=== PATIENT | male | born 2000 | race Caucasian/White ===

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

== ENCOUNTER 2022-08-24 19:12 | Emergency (ER) | payer BC, OTHER ==
[2022-08-24 19:17] VITALS: RESP 18
[2022-08-24 19:19] VITALS: TEMP 98
--- NOTE | 2022-08-24 19:36 | ED ---
General Adult HPI - General Chief complaint: Arrhythmia/Palpitations Stated complaint: palpitations Time Seen by Provider: 08/24/22 19:17 Source: patient, EMS, RN notes reviewed Mode of arrival: EMS Limitations: no limitations - History of Present Illness Initial comments: Patient is a pleasant 22-year-old male presenting to the emergency department chest discomfort and palpitations. Onset of symptoms was about an hour ago. Symptoms are improving however not completely resolved yet. Patient has had similar symptoms previously, unclear why. Patient is scheduled to see a GI doctor for evaluation for that. Patient has been started on a medication is going to start another one because the original one did not help. Patient states there is some mild discomfort as well. Patient states he was smoking marijuana prior to onset of symptoms. Patient omits to feeling somewhat anxious. Patient states this is improving also and does not feel he needs medication for. No leg pain or leg swelling. - Related Data Home Medications Medication Instructions Recorded Confirmed No Known Home Medications 08/24/22 08/24/22 Allergies Allergy/AdvReac Type Severity Reaction Status Date / Time No Known Allergies Allergy Verified 08/24/22 20:17 Review of Systems ROS Statement: Those systems with pertinent positive or pertinent negative responses have been documented in the HPI. ROS Other: All systems not noted in ROS Statement are negative. Constitutional: Denies: fever Eyes: Denies: eye pain ENT: Denies: ear pain Respiratory: Denies: cough, dyspnea Cardiovascular: Reports: as per HPI, palpitations Endocrine: Denies: fatigue Gastrointestinal: Denies: abdominal pain Genitourinary: Denies: urgency Musculoskeletal: Denies: back pain Skin: Denies: rash Neurological: Denies: weakness Psychiatric: Reports: as per HPI, anxiety Past Medical History Past Medical History: No Reported History History of Any Multi-Drug Resistant Organisms: None Reported Past Surgical History: No Surgical Hx Reported Past Psychological History: Anxiety Smoking Status: Vaper Past Alcohol Use History: Rare Past Drug Use History: Marijuana General Exam Limitations: no limitations General appearance: alert, in no apparent distress Head exam: Present: normocephalic Eye exam: Present: normal appearance Neck exam: Present: normal inspection Respiratory exam: Present: normal lung sounds bilaterally Cardiovascular Exam: Present: regular rate, normal rhythm, normal heart sounds Expanded Peripheral pulses: 2+: Radial (R), Radial (L), Posterior Tibialis (R), Posterior Tibialis (L), Dorsalis Pedis (R), Dorsalis Pedis (L) GI/Abdominal exam: Present: soft. Absent: tenderness Extremities exam: Present: normal inspection. Absent: pedal edema, calf tenderness Neurological exam: Present: alert Psychiatric exam: Present: normal affect, normal mood Skin exam: Present: normal color Course Vital Signs 08/24/22 19:14 Temperature 98 F Pulse Rate 98 Respiratory 18 Rate Blood Pressure 133/81 O2 Sat by Pulse 99 Oximetry EKG Findings - EKG Results: EKG: interpreted by ERMD, sinus rhythm, normal axis, normal QRS, normal ST/T EKG shows: tachycardia Medical Decision Making - Medical Decision Making Was pt. sent in by a medical professional or institution (, DONNA, PARACHUTE ACCESSORIES ATTACHER, urgent care, hospital, or prison...) When possible be specific @ -No Did you speak to anyone other than the patient for history (EMS, parent, family, police, friend...)? What history was obtained from this source @ -No Did you review nursing and triage notes (agree or disagree)? Why? @ -I reviewed and agree with nursing and triage notes Were old charts reviewed (outside hosp., previous admission, EMS record, old EKG, old radiological studies, urgent care reports/EKG's, prison records)? Report findings @ -No old charts were reviewed Differential Diagnosis (chest pain, altered mental status, abdominal pain women, abdominal pain men, vaginal bleeding, weakness, fever, dyspnea, syncope, headache, dizziness, GI bleed, back pain, seizure, CVA, palpatations, mental health)? @ -not applicable EKG interpreted by me (3pts min.). @ -As above X-rays interpreted by me (1pt min.). @ -[Chest x-ray shows no acute process CT interpreted by me (1pt min.). @ -None done U/S interpreted by me (1pt. min.). @ -None done What testing was considered but not performed or refused? (CT, X-rays, U/S, labs)? Why? @ -None What meds were considered but not given or refused? Why? @ -None Did you discuss the management of the patient with other professionals (professionals i.e. DONNA Glynn, PARACHUTE ACCESSORIES ATTACHER, lab, RT, psych nurse, social media coordinator, hat presser, teacher, protective services officer, case manager specialist)? Give summary @ -No Was smoking cessation discussed for >3mins.? @ -No Was critical care preformed (if so, how long)? @ -No Were there social determinants of health that impacted care today? How? (Homelessness, low income, unemployed, alcoholism, drug addiction, transportation, low edu. Level, literacy, decrease access to med. care, detention, rehab)? @ -No Was there de-escalation of care discussed even if they declined (Discuss DNR or withdrawal of care, Hospice)? DNR status @ -No What co-morbidities impacted this encounter? (DM, HTN, Smoking, COPD, CAD, Cancer, CVA, ARF, Chemo, Hep., AIDS, mental health diagnosis, sleep apnea, morbid obesity)? @ -None Was patient admitted / discharged? Hospital course, mention meds given and route, prescriptions, significant lab abnormalities, going to OR and other pertinent info. @ -Patient reevaluated and feels even better. Patient is comfortable with discharge home. Patient and family updated on results and need for follow-up. Patient does request work note and this has been provided. Undiagnosed new problem with uncertain prognosis? @ -No Drug Therapy requiring intensive monitoring for toxicity (Heparin, Nitro, Insulin, Cardizem)? @ -No Were any procedures done? @ -No Diagnosis/symptom? @ -[Palpitation Acute, or Chronic, or Acute on Chronic? @ -Acute Uncomplicated (without systemic symptoms) or Complicated (systemic symptoms)? @ -default Side effects of treatment? @ -No Exacerbation, Progression, or Severe Exacerbation? @ -No Poses a threat to life or bodily function? How? (Chest pain, [place], [place], pneumonia, PE, COPD, DKA, ARF, appy, cholecystitis, CVA, Diverticulitis, Homicidal, Suicidal, threat to staff... and all critical care pts) @ -No Disposition Clinical Impression: Palpitations, Chest pain Disposition: HOME SELF-CARE Condition: Stable Instructions (If sedation given, give patient instructions): Heart Palpitations (ED), Chest Pain (ED) Additional Instructions: Please follow-up with primary care physician in the next day or 2 for recheck. Return for difficulty breathing, increased pain, worsening or changing symptoms or other concerns. Is patient prescribed a controlled substance at d/c from ED?: No Referrals: Nonstaff,Physician [REFERRING] - 1-2 days Julian Gonzalez MD [STAFF PHYSICIAN] - 1-2 days Time of Disposition: 20:28
--- NOTE | 2022-08-24 20:22 | XR ---
EXAMINATION TYPE: XR chest 2V DATE OF EXAM: 08/24/2022 COMPARISON: 02/15/2007 HISTORY: Palpitation TECHNIQUE: FINDINGS: Heart and mediastinum are normal. Lungs are clear. Diaphragm is normal. There are chest mane ds. Bony thorax appears normal. IMPRESSION: Normal chest.
[2022-08-24 20:27] VITALS: BP 121/70; PULSE 71
== END 2022-08-24 20:43 | disposition home or self-care (01) ==
LOC: EC 19:12
DX: R00.2 Palpitations (principal); R07.9 Chest pain, unspecified; F41.9 Anxiety disorder, unspecified; F17.290 Nicotine dependence, other tobacco product, uncomplicated; F12.90 Cannabis use, unspecified, uncomplicated
CPT/HCPCS: 71046; 93005; 99285

== ENCOUNTER 2022-11-05 19:59 | Inpatient (IN) | payer BC, MEDICAID, OTHER ==
--- NOTE | 2022-11-05 20:45 | ED ---
Psych HPI - General Chief Complaint: Psychiatric Symptoms Stated Complaint: Mental Health Time Seen by Provider: 11/05/22 20:25 Source: patient, RN notes reviewed, old records reviewed Mode of arrival: ambulatory - History of Present Illness Initial Comments: This is a well-appearing 22-year-old male presents to the emergency room with complaints of depression and suicidal thoughts. States it for the past month he has been under a lot of stress with his job, bills and a recent breakup. States that today he was hanging out with his friends and did take a knife to his left arm. Abrasion is noted. Denies any previous suicide attempts or mental health hospitalizations. No medical history. Admits to smoking marijuana daily for the past week and occasionally prior. Denies any alcohol or other drug use. MD Complaint: suicidal ideation, feels depressed -: month(s) (1) Associated Psychiatric Symptoms: depression, suicidal ideation History of same: No Quality: constant, getting worse Associated Symptoms: denies other symptoms Treatments Prior to Arrival: none If Self Harm: other (states did have a knife to left arm tonight, abrasion noted) - Related Data Home Medications Medication Instructions Recorded Confirmed No Known Home Medications 08/24/22 11/05/22 Allergies Allergy/AdvReac Type Severity Reaction Status Date / Time No Known Allergies Allergy Verified 11/05/22 21:40 Review of Systems ROS Statement: Those systems with pertinent positive or pertinent negative responses have been documented in the HPI. ROS Other: All systems not noted in ROS Statement are negative. Past Medical History Past Medical History: No Reported History History of Any Multi-Drug Resistant Organisms: None Reported, MRSA Date of last positivie culture/infection: 2011 MDRO Source:: finger Past Surgical History: No Surgical Hx Reported Past Psychological History: Anxiety Smoking Status: Former smoker Past Alcohol Use History: Rare Past Drug Use History: Marijuana General Exam Limitations: no limitations General appearance: alert, in no apparent distress Head exam: Present: atraumatic Eye exam: Present: normal appearance. Absent: scleral icterus, conjunctival injection, periorbital swelling Neck exam: Present: full ROM. Absent: meningismus Respiratory exam: Absent: respiratory distress, accessory muscle use Cardiovascular Exam: Present: tachycardia GI/Abdominal exam: Present: soft. Absent: distended, guarding, rebound, rigid Extremities exam: Present: normal capillary refill. Absent: pedal edema, joint swelling, calf tenderness Back exam: Absent: tenderness, CVA tenderness (R), CVA tenderness (L) Neurological exam: Present: alert, oriented X3 Psychiatric exam: Present: normal affect, normal mood, depressed, suicidal ideation Skin exam: Present: warm, dry, normal color, abrasion (left upper forarm ). Absent: cyanosis, diaphoretic, petechiae, pallor Course Vital Signs 11/05/22 20:18 Temperature 98.0 F Pulse Rate 104 H Respiratory 18 Rate Blood Pressure 145/90 O2 Sat by Pulse 100 Oximetry Medical Decision Making - Medical Decision Making Was pt. sent in by a medical professional or institution (, PA, HEALTH CARE SPECIALIST, urgent care, hospital, or fci...) When possible be specific @ -[No] Did you speak to anyone other than the patient for history (EMS, parent, family, police, friend...)? What history was obtained from this source @ -[No] Did you review nursing and triage notes (agree or disagree)? Why? @ -[I reviewed and agree with nursing and triage notes] Were old charts reviewed (outside hosp., previous admission, EMS record, old EKG, old radiological studies, urgent care reports/EKG's, [facility]ci records)? Report findings @ -[No old charts were reviewed] Differential Diagnosis (chest pain, altered mental status, abdominal pain women, abdominal pain men, vaginal bleeding, weakness, fever, dyspnea, syncope, headache, dizziness, GI bleed, back pain, seizure, CVA, palpatations, mental health, musculoskeletal)? @ -Differential Mental Health Depression, anxiety, bipolar, psychosis, schizophrenia, borderline personality, situational depression, adjustment disorder, behavioral disorder, brain tumor, malingering, substance abuse, encephalopathy, medication reaction, dementia, hypothyroidism, degenerative neurologic disorder, lupus.... This is not meant to be all-inclusive list EKG interpreted by me (3pts min.). @ -[As above] X-rays interpreted by me (1pt min.). @ -[None done] CT interpreted by me (1pt min.). @ -[None done] U/S interpreted by me (1pt. min.). @ -[None done] What testing was considered but not performed or refused? (CT, X-rays, U/S, labs)? Why? @ -[None] What meds were considered but not given or refused? Why? @ -[None] Did you discuss the management of the patient with other professionals (professionals i.e. , PA, HEALTH CARE SPECIALIST, lab, RT, psych nurse, hospice social worker, corn popper, teacher, chemistry technical officer, bottle caser)? Give summary @ -[No] Was smoking cessation discussed for >3mins.? @ -[No] Was critical care preformed (if so, how long)? @ -[No] Were there social determinants of health that impacted care today? How? (Homelessness, low income, unemployed, alcoholism, drug addiction, transportation, low edu. Level, literacy, decrease access to med. care, long-term, rehab)? @ -[No] Was there de-escalation of care discussed even if they declined (Discuss DNR or withdrawal of care, Hospice)? DNR status @ -[No] What co-morbidities impacted this encounter? (DM, HTN, Smoking, COPD, CAD, Cancer, CVA, ARF, Chemo, Hep., AIDS, mental health diagnosis, sleep apnea, morbid obesity)? @ -[None] Was patient admitted / discharged? Hospital course, mention meds given and route, prescriptions, significant lab abnormalities, going to OR and other pertinent info. @ -Admitted This is a well-appearing 22-year-old male presents to the emergency room with complaints of depression and suicidal thoughts. States it for the past month he has been under a lot of stress with his job, bills and a recent breakup. States that today he was hanging out with his friends and did take a knife to his left arm. Abrasion is noted. Denies any previous suicide attempts or mental health hospitalizations. No medical history. Admits to smoking marijuana daily for the past week and occasionally prior. Denies any alcohol or other drug use. EPS tested speak with patient and he is voluntarily admitted My attending is Dr. Fuentes Undiagnosed new problem with uncertain prognosis? @ -[No] Drug Therapy requiring intensive monitoring for toxicity (Heparin, Nitro, Insulin, Cardizem)? @ -[No] Were any procedures done? @ -[No] Diagnosis/symptom? @ -Suicidal ideation Acute, or Chronic, or Acute on Chronic? @ -Acute Uncomplicated (without systemic symptoms) or Complicated (systemic symptoms)? @ -Complicated Side effects of treatment? @ -[No] Exacerbation, Progression, or Severe Exacerbation? @ -[No] Poses a threat to life or bodily function? How? (Chest pain, [place], [place], pneumonia, PE, COPD, DKA, ARF, appy, cholecystitis, CVA, Diverticulitis, Homicidal, Suicidal, threat to staff... and all critical care pts) @ -yes suicidal ideation - Lab Data Lab Results 11/05/22 11/05/22 Range/Units 20:29 21:34 Urine Color Yellow Urine Appearance Clear (Clear) Urine pH 7.5 (5.0-8.0) Ur Specific [place] 1.015 (1.001-1.035) Urine Protein Negative (Negative) Urine Glucose (UA) Negative (Negative) Urine Ketones 2+ H (Negative) Urine Blood Negative (Negative) Urine Nitrite Negative (Negative) Urine Bilirubin Negative (Negative) Urine Urobilinogen 2.0 (<2.0) mg/dL Ur Leukocyte Esterase Negative (Negative) Coronavirus (PCR) Not Detected (Not Detectd) Disposition Clinical Impression: Suicidal ideation Disposition: ADMITTED IP TO THIS [facility] Condition: Good Decision Date: 11/05/22
[2022-11-05] MEDS ORDERED: MAGNESIUM HYDROXIDE 2,400 MG/10 ML CUP PO PRN (22:37)
[2022-11-05] MEDS ORDERED: ACETAMINOPHEN TAB 325 MG TAB PO PRN (22:37)
[2022-11-05] MEDS ORDERED: MAG HYDROX/AL HYDROX/SIMETH 30 ML CUP PO PRN (22:37)
[2022-11-05] MEDS ORDERED: OLANZapine 5 MG TAB PO PRN (22:39)
[2022-11-05] MEDS ORDERED: hydrOXYzine HCL 50 MG/ML 1 ML VIAL IM PRN (22:39)
[2022-11-05] MEDS ORDERED: MELATONIN 5 MG TABLET PO PRN (22:39)
[2022-11-05] MEDS ORDERED: OLANZapine 10 MG VIAL IM PRN (22:39)
[2022-11-05] MEDS ORDERED: hydrOXYzine pamoate 25 MG CAP PO PRN (22:39)
[2022-11-05 22:55] LABS: Appearance,Urine Clear (Clear); Bilirubin,Urine Negative (Negative); Blood,Urine Negative (Negative); Color,Urine Yellow; Glucose,Urine (UA) Negative (Negative); Ketones,Urine 2+ (Negative); Leukocyte Esterase,Urine Negative (Negative); Nitrite,Urine Negative (Negative); PH, Urine 7.5 (5.0-8.0); Protein,Urine Negative (Negative); Specific Gravity,Urine 1.015 (1.001-1.035)
[2022-11-06 06:03] LABS: Urine Alcohol Negative (Negative); Urine Barbiturate Negative (Negative); Urine Cocaine Negative (Negative); Urine Methadone Negative (Negative); Urine Opiates Negative (Negative); Urine Phencyclidine Negative (Negative)
[2022-11-06 08:35] LABS: Basophils % (A) 0 %; Eosinophils # (A) 0.1 k/uL (0-0.7); Eosinophils % (A) 1 %; HCT 46.8 % (39.0-53.0); Lymphocytes # (A) 3.3 k/uL (1.0-4.8); Lymphocytes % (A) 42 %; MCHC 34.2 g/dL (31.0-37.0); MCV 93.8 fL (80.0-100.0); Mean Platelet Volume 7.4; Monocytes # (A) 0.4 k/uL (0-1.0); Monocytes % (A) 6 %; Neutrophils # (A) 3.8 k/uL (1.3-7.7); Neutrophils % (A) 49 %; Platelet Count 350 k/uL (150-450); RBC 4.99 m/uL (4.30-5.90); WBC 7.8 k/uL (3.8-10.6)
[2022-11-06 08:55] LABS: ALT 22 U/L (4-49); AST 27 U/L (17-59); African American GFR (CKD) >90 (>60 ml/min/1.73 sqM); Albumin 5.4 g/dL (3.5-5.0); Alkaline Phosphatase 68 U/L (38-126); Anion Gap 14 mmol/L; Blood Urea Nitrogen 10 mg/dL (9-20); Calcium 10.4 mg/dL (8.4-10.2); Carbon Dioxide 28 mmol/L (22-30); Chloride 99 mmol/L (98-107); Glucose 70 mg/dL (74-99); Non-African American GFR(CKD) >90 (>60 ml/min/1.73 sqM); Potassium 4.1 mmol/L (3.5-5.1); Sodium 141 mmol/L (137-145); Total Bilirubin 1.8 mg/dL (0.2-1.3); Total Protein 8.8 g/dL (6.3-8.2)
[2022-11-06] MEDS ORDERED: NICOTINE 14MG/24HR PATCH TRANSDERM SCH (09:00)
--- NOTE | 2022-11-06 13:18 | P.HP ---
Psychiatric H&P - . H&P Date: 11/06/22 History & Physical: Allergies Allergy/AdvReac Type Severity Reaction Status Date / Time No Known Allergies Allergy Verified 11/05/22 21:40 Vital Signs Temp 98.7 F 11/06/22 01:20 Pulse 97 11/06/22 01:20 Resp 16 11/06/22 01:20 BP 131/79 11/06/22 01:20 Pulse Ox 98 11/06/22 01:20 FiO2 Intake & Output 11/05/22 11/06/22 11/06/22 18:59 06:59 18:59 Weight 60.645 kg Laboratory Last Values WBC 7.8 k/uL (3.8-10.6) 11/06/22 07:46 RBC 4.99 m/uL (4.30-5.90) 11/06/22 07:46 Hgb 16.0 gm/dL (13.0-17.5) 11/06/22 07:46 Hct 46.8 % (39.0-53.0) 11/06/22 07:46 MCV 93.8 fL (80.0-100.0) 11/06/22 07:46 MCH 32.0 pg (25.0-35.0) 11/06/22 07:46 MCHC 34.2 g/dL (31.0-37.0) 11/06/22 07:46 RDW 12.0 % (11.5-15.5) 11/06/22 07:46 Plt Count 350 k/uL (150-450) 11/06/22 07:46 MPV 7.4 11/06/22 07:46 Neutrophils % 49 % 11/06/22 07:46 Lymphocytes % 42 % 11/06/22 07:46 Monocytes % 6 % 11/06/22 07:46 Eosinophils % 1 % 11/06/22 07:46 Basophils % 0 % 11/06/22 07:46 Neutrophils # 3.8 k/uL (1.3-7.7) 11/06/22 07:46 Lymphocytes # 3.3 k/uL (1.0-4.8) 11/06/22 07:46 Monocytes # 0.4 k/uL (0-1.0) 11/06/22 07:46 Eosinophils # 0.1 k/uL (0-0.7) 11/06/22 07:46 Basophils # 0.0 k/uL (0-0.2) 11/06/22 07:46 Sodium 141 mmol/L (137-145) 11/06/22 07:46 Potassium 4.1 mmol/L (3.5-5.1) 11/06/22 07:46 Chloride 99 mmol/L (98-107) 11/06/22 07:46 Carbon Dioxide 28 mmol/L (22-30) 11/06/22 07:46 Anion Gap 14 mmol/L 11/06/22 07:46 BUN 10 mg/dL (9-20) 11/06/22 07:46 Creatinine 0.87 mg/dL (0.66-1.25) 11/06/22 07:46 Est GFR (CKD-EPI)AfAm >90 (>60 ml/min/1.73 sqM) 11/06/22 07:46 Est GFR (CKD-EPI)NonAf >90 (>60 ml/min/1.73 sqM) 11/06/22 07:46 Glucose 70 mg/dL (74-99) L 11/06/22 07:[address] Glu mg/dL 88 mg/dL 11/06/22 07:46 Hemoglobin A1c 4.7 % (<=6.0) 11/06/22 07:46 Calcium 10.4 mg/dL (8.4-10.2) H 11/06/22 07:46 Total Bilirubin 1.8 mg/dL (0.2-1.3) H 11/06/22 07:46 AST 27 U/L (17-59) 11/06/22 07:46 ALT 22 U/L (4-49) 11/06/22 07:46 Alkaline Phosphatase 68 U/L (38-126) 11/06/22 07:46 Total Protein 8.8 g/dL (6.3-8.2) H 11/06/22 07:46 Albumin 5.4 g/dL (3.5-5.0) H 11/06/22 07:46 TSH 1.620 mIU/L (0.465-4.680) 11/06/22 07:46 Urine Color Yellow 11/05/22 20:29 Urine Appearance Clear (Clear) 11/05/22 20:29 Urine pH 7.5 (5.0-8.0) 11/05/22 20:29 Ur Specific [place] 1.015 (1.001-1.035) 11/05/22 20:29 Urine Protein Negative (Negative) 11/05/22 20:29 Urine Glucose (UA) Negative (Negative) 11/05/22 20:29 Urine Ketones 2+ (Negative) H 11/05/22 20:29 Urine Blood Negative (Negative) 11/05/22 20:29 Urine Nitrite Negative (Negative) 11/05/22 20:29 Urine Bilirubin Negative (Negative) 11/05/22 20:29 Urine Urobilinogen 2.0 mg/dL (<2.0) 11/05/22 20:29 Ur Leukocyte Esterase Negative (Negative) 11/05/22 20:29 Urine Opiates Screen Negative (Negative) 11/05/22 20:29 Urine Methadone Screen Negative (Negative) 11/05/22 20:29 Ur Propoxyphene Screen Negative (Negative) 11/05/22 20:29 Urine Barbiturates Negative (Negative) 11/05/22 20:29 Ur Phencyclidine Scrn Negative (Negative) 11/05/22 20:29 Ur Amphetamine Screen Negative (Negative) 11/05/22 20:29 U Benzodiazepines Scrn Negative (Negative) 11/05/22 20:29 Urine Cocaine Screen Negative (Negative) 11/05/22 20:29 U Cannabinoids Screen Positive (Negative) A 11/05/22 20:29 Urine Alcohol Negative (Negative) 11/05/22 20:29 Coronavirus (PCR) Not Detected (Not Detectd) 11/05/22 21:34 11/06/22 13:08 IDENTIFYING DATA: Patient is a 22-year-old male, currently lives alone in an apartment, has no kids, works at the [employer]. HPI: Patient presented to the hospital yesterday and was evaluated in the ER and was complaining of depression and suicidal thoughts in the midst of several recent stressors in his life. Patient was admitted voluntarily to the mental health unit. Patient has never been admitted psychiatrically in the past. He was seen today and agreeable to scientific writer in the office. He appeared to be fairly friendly and pleasant and directable during conversation. He states that he has been going through "a lot right now" and states that he had a recent "bad breakup" with his girlfriend of 3 years. He claims that they "just didn't work out because of poor communication". He claims that they broke up on October 02 and he has been trying to cope on his own at home. He states that these have been difficult times for him. He claims that he is been struggling with some mild depression and also anxiety. He claims that he also has some financial stressors due to being laid off from work. Claims that yesterday he picked up a knife to potentially harm himself with it however states that "I couldn't go through with it" and states that he went to the hospital instead. He claims that he has never had a suicidal thought in the past. He claims that he sleeps about 6-8 hours a night, appetite is been on and off. Patient denies any current suicidal or homicidal ideations intent or plan. At this time patient denies any auditory or visual hallucinations. Patient denies any flight of ideas racing thoughts and increased in goal directed behavior. Patient admits to using marijuana frequently and increasing use during the day, denies smoking any cigarettes states that he quit smoking several weeks ago. Denies any other recreational drug use. PAST PSYCHIATRIC HISTORY: Patient states that he has a history of ADHD as a child. He claims that he was previously on Adderall as a child and a few months ago tried Wellbutrin prescribed by his family care doctor. He states that he did not tolerate the Wellbutrin well. Patient denies any previous psychiatric hospitalizations. Patient denies any psychiatric outpatient follow-up. Patient denies any history of suicide attempts in the past. PMH: As per ER note ALLERGIES: as per EMR CHEMICAL DEPENDENCY HISTORY: as per HPI FAMILY PSYCHIATRIC/SUBSTANCE USE HISTORY: Claims that his mother has severe depression. SOCIAL HISTORY: Patient was born and raised in [facility]. He states that currently he lives in [place]. He stated that he completed up to 11th grade in school. Denies any legal history. He states that he lives alone in an apartment. He has no kids, he is single, he currently is working at the [employer] however is laid off. MENTAL STATUS EXAM: General Appearance: Patient appears to be thin, stated age is alert, directable, and attempts to cooperate. Patient appears to have fair hygiene and grooming. Behavior: Patient is seated without any agitated behavior. somewhat cooperative. Speech: Patient's speech is fluent and nonpressured. Mood/Affect: Patient reports their mood is depressed sometimes, affect is congruent Suicidality/Homicidality: Patient denies having any homicidal ideation intent or plan. Denies any suicidal ideations intent or plan Perceptions: Patient denies any visual hallucinations and denies any auditory hallucinations Though content/process: There is no evidence of any delusional thought content and thought process is linear and goal-directed. minimizing his need for medications Memory and concentration: AOX3, grossly intact for the purposes of this session. Can spell "WORLD" backwards Judgment and insight: limited STRENGTHS/WEAKNESSES: strength is that patient is resilient. 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 Patient has signed adult voluntary form and is placed in patient's chart. -Medications : scientific writer discussed his recommendation to start on an anitdepressant and listed off several options however patient is very skeptical of medications at this time and does not want to start any. He claims that he will think about it and wants to attend groups -Ativan and Haldol PRN for agitation/aggression -Patient was counselled on substance abuse and desired to cut back on use -Patient was informed of the risks, benefits and side effects of the medication however patient adamatly is declining any medications. -Internal Medicine consult to perform medical evaluation and physical. -NRT - not needed as patient does not smoke -SW on board for discharge planning. Encourage patient to participate in groups to work on coping skills. there is not enough at this time to proceed through the involuntary route due to patients milder sx and refusal to take treatment/medications. Patient will think about medications at this time and participate in groups and will consider d/c tomorrow if patient will be better suited for outpatient mental health care. 11/06/22 13:09
--- NOTE | 2022-11-06 21:01 | P.CONS ---
History of Present Illness - Reason for Consult Consult date: 11/06/22 Medical management Requesting physician: Xavier Baer - Chief Complaint Depressed - History of Present Illness This is a 22-year-old patient was at Dr. Burnett. Has had a prior history of ADHD as a child. 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 Looking at a grocery store. Patient's girlfriend of 3 years duration has broken up. And patient rather sad about the same. Appetite is okay. Not eating well. Rather anxious. Patient did take a knife to hurt himself but couldn't continue it. Decided to come to the ER. Patient stopped smoking about 2 months ago. Does marijuana occasionally. Does live by himself. 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 Lives alone. Still smoking 2 months ago. Does marijuana occasionally. Physical examination: VITAL SIGNS: 98.7, 97, 16, 131/79, 98% room air GENERAL: BMI 19.7, somewhat restless and fidgety. EYES: Pupils equal. Conjunctiva normal. HEENT: External appearance of nose and ears normal, oral cavity grossly normal. NECK: JVD not raised; masses not palpable. HEART: First and second heart sounds are normal; no edema. LUNGS: Respiratory rate normal; clear to auscultation. ABDOMEN: Soft, nontender, liver spleen not palpable, no masses palpable. PSYCH: Alert and oriented x3; mood and affect anxiousl. MUSCULOSKELETAL:No Clubbing/cyanosis;muscles-grossly intact NEUROLOGICAL: Cranial nerves grossly intact; no facial asymmetry, power and sensation grossly intact. LYMPHATICS: No lymph nodes palpable in the axilla and neck INVESTIGATIONS, reviewed in the clinical context: White count 7.8 hemoglobin 16 platelets 350 potassium 4.1 creatinine 0.87. Glucose 70 total bilirubin 1.8 TSH 1.6 urine ketones 2+ Urine drug screen positive for cannabinoids COVID-19 PCR: Not detected Assessment and plan: -Recreational marijuana use. Patient advised against the same -Hyperbilirubinemia, likely familial. Asymptomatic -Ketonuria from starvation decreased oral intake Increase oral intake -Insomnia from anxiety depression. Medications for depression her from sleep better. -Depressive disorder unspecified likely adjustment disorder with depression and anxiety. Follow with psychiatry Thank you Dr. Baer Past Medical History Past Medical History: No Reported History History of Any Multi-Drug Resistant Organisms: None Reported, MRSA Year Discovered:: 2011 MDRO Source:: finger Past Surgical History: No Surgical Hx Reported Past Psychological History: Anxiety Smoking Status: Former smoker Past Alcohol Use History: Rare Past Drug Use History: Marijuana Medications and Allergies Home Medications Medication Instructions Recorded Confirmed Type No Known Home Medications 08/24/22 11/05/22 History Allergies Allergy/AdvReac Type Severity Reaction Status Date / Time No Known Allergies Allergy Verified 11/05/22 21:40 Physical Exam Vitals: Vital Signs Temp Pulse Resp BP Pulse Ox 11/06/22 01:20 98.7 F 97 16 131/79 98 Intake and Output 11/06/22 11/06/22 11/06/22 06:59 14:59 22:59 Other: Weight 60.645 kg Results CBC & Chem 7: 11/06/22 07:46 11/06/22 07:46 Labs: Abnormal Lab Results - Last 24 Hours (Table) 11/05/22 11/05/22 11/06/22 Range/Units 20:29 20:29 07:46 Glucose 70 L (74-99) mg/dL Calcium 10.4 H (8.4-10.2) mg/dL Total Bilirubin 1.8 H (0.2-1.3) mg/dL Total Protein 8.8 H (6.3-8.2) g/dL Albumin 5.4 H (3.5-5.0) g/dL Urine Ketones 2+ H (Negative) U Cannabinoids Screen Positive A (Negative)
[2022-11-07 05:48] VITALS: BP 114/80; PULSE 106; RESP 18; TEMP 98.3
--- NOTE | 2022-11-07 09:42 | P.DS ---
Providers Date of admission: 11/05/22 22:32 Expected date of discharge: 11/07/22 Attending physician: Xavier Baer MD Consults: 11/05/22 22:37 Consult Physician Routine Consulting Provider: Joss Arambula Consult Reason/Comments: H&P Do you want consulting provider notified?: Yes, Notify in am Primary care physician: Jabari Burnett - Discharge Diagnosis(es) (1) Depressive disorder Current Visit: Yes Status: Acute Priority: High (2) Cannabis use disorder Current Visit: Yes Status: Acute Priority: Medium Hospital Course: Admission HPI: Admission note was completed by proposal manager writer "Patient is a 22-year-old male, currently lives alone in an apartment, has no kids, works at the [employer]. Patient presented to the hospital yesterday and was evaluated in the ER and was complaining of depression and suicidal thoughts in the midst of several recent stressors in his life. Patient was admitted voluntarily to the mental health unit. Patient has never been admitted psychiatrically in the past. He was seen today and agreeable to home health speech therapist in the office. He appeared to be fairly friendly and pleasant and directable during conversation. He states that he has been going through "a lot right now" and states that he had a recent "bad breakup" with his girlfriend of 3 years. He claims that they "just didn't work out because of poor communication". He claims that they broke up on October 02 and he has been trying to cope on his own at home. He states that these have been difficult times for him. He claims that he is been struggling with some mild depression and also anxiety. He claims that he also has some financial stressors due to being laid off from work. Claims that yesterday he picked up a knife to potentially harm himself with it however states that "I couldn't go through with it" and states that he went to the hospital instead. He claims that he has never had a suicidal thought in the past. He claims that he sleeps about 6-8 hours a night, appetite is been on and off. Patient denies any current suicidal or homicidal ideations intent or plan. At this time patient denies any auditory or visual hallucinations. Patient denies any flight of ideas racing thoughts and increased in goal directed behavior. Patient admits to using marijuana frequently and increasing use during the day, denies smoking any cigarettes states that he quit smoking several weeks ago. Denies any other recreational drug use." Hospital course: Upon admission to the unit patient was directable and agreeable to commence treatment and signed adult voluntary form, Patient got along well with other patients on the unit and followed unit protocol. Hot Mill Operator spoke with patient about the recommendation for starting antidepressant and possibly sleeping medi cations however patient was adamant on refusing medications and would rather go to groups and "talk to other people" and requested to do outpatient therapy instead of taking medications. Patient spoke of his stressors and engaged in therapy both group and individual. Patient was also seen by medical team for history and physical exam. Throughout the course of the hospitalization patient gradually improved with regards to mood, anxiety, sleep and returned back to their baseline level of functioning. On the day of discharge patient denied any suicidal or homicidal ideations intent or plan denied any auditory or visual hallucinations. Patient endorsed wanting to live for his health, future and family. The patient denied any access to guns or weapons. Patient denied any paranoia and did not endorse any delusions. Patient does have a significant history of substance abuse and was counseled on abstaining from all substances including alcohol and marijuana. Patient elected to do outpatient substance use treatment program and also wanted to cut back on marijuana on his own. Patient was also counseled on the medications and need for regular compliance and was encouraged to follow-up with their outpatient appointment for mental health and also for primary care. Prior to discharge a family meeting will be arranged by social worker psychiatric to answer any questions and ensure safety upon discharge. Mental status exam: General Appearance: Patient appears to be thin, unshaven, stated age is alert, pleasant, and cooperative. Patient is in no acute distress and has improved hygiene and grooming Behavior: Patient is calmly seated without any agitated behavior. Speech: Patient's speech is fluent and nonpressured. Mood/Affect: Patient reports their mood is "better", affect is congruent and euthymic. Suicidality/Homicidality: Patient denies having any suicidal or homicidal ideation intent or plan. Perceptions: Patient denies any auditory or visual hallucinations. Though content/process: There is no evidence of any delusional thought content and thought process is linear and goal-directed. more future oriented Memory and concentration: AOX3, grossly intact for the purposes of this session. Can spell "WORLD" backwards correctly. Judgment and insight: improved with guarded prognosis Impression: Depressive disorder unspecified, likely adjustment disorder with depression and anxiety Cannabis use disorder Plan: -Continue with discharge today as patient has improved and stabilized psychiatrically and is not currently an imminent threat to himself and/or others. -Continue medications: patient adamantly declined medications at this time and would rather do outpatient therapy and possibly groups. -Patient was counseled on the need for medication compliance and appropriate follow-up at mental health and also primary care for medical issues. Patient verbalized understanding and agreed. -Social work to arrange for and conduct family meeting to ensure safety upon discharge and answer any questions/concerns. Social work also to arrange for patients follow up appointments for psychiatric care along with follow up with primary care provider. -Patient counseled on abstaining from recreational drugs and marijuana and alcohol. Was informed/educated on the adverse effects on their physical and mental health. Patient verbally agreed and understood. -Patient was instructed to return to the hospital or seek immediate medical care if their psychiatric or medical symptoms do worsen or reoccur. Allergies Allergy/AdvReac Type Severity Reaction Status Date / Time No Known Allergies Allergy Verified 11/05/22 21:40 Laboratory Results WBC 7.8 k/uL (3.8-10.6) 11/06/22 07:46 RBC 4.99 m/uL (4.30-5.90) 11/06/22 07:46 Hgb 16.0 gm/dL (13.0-17.5) 11/06/22 07:46 Hct 46.8 % (39.0-53.0) 11/06/22 07:46 MCV 93.8 fL (80.0-100.0) 11/06/22 07:46 MCH 32.0 pg (25.0-35.0) 11/06/22 07:46 MCHC 34.2 g/dL (31.0-37.0) 11/06/22 07:46 RDW 12.0 % (11.5-15.5) 11/06/22 07:46 Plt Count 350 k/uL (150-450) 11/06/22 07:46 MPV 7.4 11/06/22 07:46 Neutrophils % 49 % 11/06/22 07:46 Lymphocytes % 42 % 11/06/22 07:46 Monocytes % 6 % 11/06/22 07:46 Eosinophils % 1 % 11/06/22 07:46 Basophils % 0 % 11/06/22 07:46 Neutrophils # 3.8 k/uL (1.3-7.7) 11/06/22 07:46 Lymphocytes # 3.3 k/uL (1.0-4.8) 11/06/22 07:46 Monocytes # 0.4 k/uL (0-1.0) 11/06/22 07:46 Eosinophils # 0.1 k/uL (0-0.7) 11/06/22 07:46 Basophils # 0.0 k/uL (0-0.2) 11/06/22 07:46 Sodium 141 mmol/L (137-145) 11/06/22 07:46 Potassium 4.1 mmol/L (3.5-5.1) 11/06/22 07:46 Chloride 99 mmol/L (98-107) 11/06/22 07:46 Carbon Dioxide 28 mmol/L (22-30) 11/06/22 07:46 Anion Gap 14 mmol/L 11/06/22 07:46 BUN 10 mg/dL (9-20) 11/06/22 07:46 Creatinine 0.87 mg/dL (0.66-1.25) 11/06/22 07:46 Est GFR (CKD-EPI)AfAm >90 (>60 ml/min/1.73 sqM) 11/06/22 07:46 Est GFR (CKD-EPI)NonAf >90 (>60 ml/min/1.73 sqM) 11/06/22 07:46 Glucose 70 mg/dL (74-99) L 11/06/22 07:[address] Glu mg/dL 88 mg/dL 11/06/22 07:46 Hemoglobin A1c 4.7 % (<=6.0) 11/06/22 07:46 Calcium 10.4 mg/dL (8.4-10.2) H 11/06/22 07:46 Total Bilirubin 1.8 mg/dL (0.2-1.3) H 11/06/22 07:46 AST 27 U/L (17-59) 11/06/22 07:46 ALT 22 U/L (4-49) 11/06/22 07:46 Alkaline Phosphatase 68 U/L (38-126) 11/06/22 07:46 Total Protein 8.8 g/dL (6.3-8.2) H 11/06/22 07:46 Albumin 5.4 g/dL (3.5-5.0) H 11/06/22 07:46 TSH 1.620 mIU/L (0.465-4.680) 11/06/22 07:46 Urine Color Yellow 11/05/22 20:29 Urine Appearance Clear (Clear) 11/05/22 20:29 Urine pH 7.5 (5.0-8.0) 11/05/22 20:29 Ur Specific [place] 1.015 (1.001-1.035) 11/05/22 20:29 Urine Protein Negative (Negative) 11/05/22 20:29 Urine Glucose (UA) Negative (Negative) 11/05/22 20:29 Urine Ketones 2+ (Negative) H 11/05/22 20:29 Urine Blood Negative (Negative) 11/05/22 20:29 Urine Nitrite Negative (Negative) 11/05/22 20:29 Urine Bilirubin Negative (Negative) 11/05/22 20:29 Urine Urobilinogen 2.0 mg/dL (<2.0) 11/05/22 20:29 Ur Leukocyte Esterase Negative (Negative) 11/05/22 20:29 Urine Opiates Screen Negative (Negative) 11/05/22 20:29 Urine Methadone Screen Negative (Negative) 11/05/22 20:29 Ur Propoxyphene Screen Negative (Negative) 11/05/22 20:29 Urine Barbiturates Negative (Negative) 11/05/22 20:29 Ur Phencyclidine Scrn Negative (Negative) 11/05/22 20:29 Ur Amphetamine Screen Negative (Negative) 11/05/22 20:29 U Benzodiazepines Scrn Negative (Negative) 11/05/22 20:29 Urine Cocaine Screen Negative (Negative) 11/05/22 20:29 U Cannabinoids Screen Positive (Negative) A 11/05/22 20:29 Urine Alcohol Negative (Negative) 11/05/22 20:29 Coronavirus (PCR) Not Detected (Not Detectd) 11/05/22 21:34 Vital Signs Temp 98.3 F 11/07/22 05:47 Pulse 106 H 11/07/22 05:47 Resp 18 11/07/22 05:47 BP 114/80 11/07/22 05:47 Pulse Ox 96 11/07/22 05:47 FiO2 Patient Condition at Discharge: Stable Plan - Discharge Summary Discharge Rx Participant: Yes New Discharge Prescriptions: New Melatonin 10 mg PO HS PRN tab PRN Reason: sleep Discharge Medication List Melatonin 10 mg PO HS PRN tab 11/07/22 [Rx] Follow up Appointment(s)/Referral(s): Jabari Burentt MD [Primary Care Provider] - 1-2 days Activity/Diet/Wound Care/Special Instructions: Avoid the use of street drugs and alcohol. Take all medications as prescribed. When you are in need of refills on your medications, please contact your medical provider and/or outpatient psychiatrist to have this done. Please go to scheduled outpatient appointments for aftercare treatment. If symptoms return or become worse, call the crisis line at and/or go to the nearest emergency room for evaluation. Discharge Disposition: HOME SELF-CARE
== END 2022-11-07 13:33 | disposition home or self-care (01) | DRG 755 ==
LOC: EC 19:59 → 3MHU 22:32
PROVIDERS: ADMIT Psychiatry & Neurology Psychiatry; ATTEND Psychiatry & Neurology Psychiatry
DX: F43.23 Adjustment disorder with mixed anxiety and depressed mood (principal); R45.851 Suicidal ideations; F90.9 Attention-deficit hyperactivity disorder, unspecified type; F51.05 Insomnia due to other mental disorder; R82.4 Acetonuria; T73.0XXA Starvation, initial encounter; E80.6 Other disorders of bilirubin metabolism; Z71.51 Drug abuse counseling and surveillance of drug abuser; Z59.00 Homelessness unspecified; Z20.822 Contact with and (suspected) exposure to COVID-19; Z87.891 Personal history of nicotine dependence; Z86.14 Personal history of Methicillin resistant Staphylococcus aureus infection
CPT/HCPCS: 80053; 80306; 81003; 82075; 83036; 84443; 85025; 87635; 99285

== ENCOUNTER → 2022-12-08 | Outpatient (CLI) | payer OTHER ==
--- NOTE | 2022-12-10 08:52 | CT ---
EXAMINATION TYPE: CT abdomen w con DATE OF EXAM: 12/08/2022 COMPARISON: None INDICATION: LUQ and side pain DLP: 386.80 mGycm, Automated exposure control for dose reduction was used. CONTRAST: 100 mL of Isovue 300. Study performed with Oral Contrast TECHNIQUE: Axial images were obtained from above the diaphragm to the pubic rami in the axial plane a t 5 mm thick sections. Reconstructed images are reviewed on the computer in the coronal plane. FINDINGS: Limited CT sections are obtained the lung bases. The lung bases are clear. CT ABDOMEN: Liver: Normal Spleen: Normal Pancreas: Normal Adrenal glands: The adrenal glands are normal. Gallbladder: Normal Kidneys: No masses are evident. No hydronephrosis is present. No cysts are present. Delayed images were obtained through the kidneys, which remain unremarkable. Aorta: Normal Inferior vena cava: Normal. Loops of bowel with oral contrast. Unremarkable. There are loops of bowel without contrast. Fecal debris is within the colon. IMPRESSIONS: 1. Mild fecal retention
== END | disposition home or self-care (01) ==
LOC: RADCTMAIN 16:06
PROVIDERS: ATTEND Internal Medicine Gastroenterology
DX: R10.12 Left upper quadrant pain (principal); K56.41 Fecal impaction
CPT/HCPCS: 74160; Q9967

== ENCOUNTER 2023-10-08 18:44 | Emergency (ER) | payer MEDICAID, OTHER ==
--- NOTE | 2023-10-08 19:12 | XR ---
EXAMINATION TYPE: XR chest 2V DATE OF EXAM: 10/08/2023 7:06 PM CLINICAL INDICATION:Male, 23 years old with history of dysrhythmia; [facility] COMPARISON: Chest radiographs from 08/24/2022. TECHNIQUE: XR chest 2V Frontal and lateral views of the chest. FINDINGS: Lungs/Pleura: There is no evidence of pleural effusion, focal consolidation, or pneumothorax. Pulmonary vascularity: Unremarkable. Heart/mediastinum: Cardiomediastinal silhouette is unremarkable. Musculoskeletal: No acute osseous pathology. IMPRESSION: No acute cardiopulmonary disease/process.
[2023-10-08 19:34] LABS: Basophils # (A) 0.1 k/uL (0-0.2); Basophils % (A) 1 %; Eosinophils # (A) 0.1 k/uL (0-0.7); Eosinophils % (A) 1 %; HCT 47.7 % (39.0-53.0); HGB 16.3 gm/dL (13.0-17.5); Lymphocytes # (A) 1.4 k/uL (1.0-4.8); Lymphocytes % (A) 16 %; MCH 32.1 pg (25.0-35.0); MCHC 34.2 g/dL (31.0-37.0); MCV 93.9 fL (80.0-100.0); Mean Platelet Volume 6.9; Monocytes # (A) 0.4 k/uL (0-1.0); Monocytes % (A) 5 %; Neutrophils # (A) 6.4 k/uL (1.3-7.7); Neutrophils % (A) 75 %; Platelet Count 295 k/uL (150-450); RBC 5.08 m/uL (4.30-5.90); RDW 11.9 % (11.5-15.5); WBC 8.5 k/uL (3.8-10.6)
[2023-10-08 19:41] LABS: Partial Thromboplastin Time 24.6 sec (22.0-30.0); Prothrombin Time 10.5 sec (10.0-12.5)
[2023-10-08 19:43] LABS: ALT 103 U/L (4-49); AST 210 U/L (17-59); African American GFR (CKD) >90 (>60 ml/min/1.73 sqM); Albumin 5.5 g/dL (3.5-5.0); Alkaline Phosphatase 81 U/L (38-126); Anion Gap 13 mmol/L; Blood Urea Nitrogen 16 mg/dL (9-20); Calcium 10.2 mg/dL (8.4-10.2); Carbon Dioxide 23 mmol/L (22-30); Chloride 105 mmol/L (98-107); Glucose 84 mg/dL (74-99); Magnesium 2.1 mg/dL (1.6-2.3); Non-African American GFR(CKD) >90 (>60 ml/min/1.73 sqM); Potassium 4.1 mmol/L (3.5-5.1); Sodium 141 mmol/L (137-145); Total Bilirubin 1.1 mg/dL (0.2-1.3); Total Protein 8.6 g/dL (6.3-8.2)
[2023-10-08] MEDS: diphenhydrAMINE 25 MG CAP PO STA (21:05)
--- NOTE | 2023-10-08 21:57 | ED ---
General Adult HPI - General Chief complaint: Arrhythmia/Palpitations Stated complaint: Hypertenison Time Seen by Provider: 10/08/23 20:50 Source: patient, RN notes reviewed, old records reviewed Mode of arrival: ambulatory Limitations: no limitations - History of Present Illness Initial comments: Patient is a 23-year-old male who presents emergency department complaining of heart palpitations and anxiety. Has a history of hypertension, anxiety. Has been worse and ongoing for the last few weeks. Has not been taking his normal Cardizem medication. He does not like taking benzodiazepines for panic attacks but states that is what it feels like at this time. Denies any nausea or vomiting or lightheadedness. States he noticed he had high blood pressure as well at urgent care who sent him here for further evaluation. Patient states he currently is feeling improved. Denies coughing, fevers, chills. Denies any chest pain. Heart palpitations are improved as well. Presents for further evaluation. Workup started in triage. - Related Data Previous Rx's Medication Instructions Recorded Melatonin 10 mg PO HS PRN tab 11/07/22 Diltiazem Cd [Cardizem CD] 180 mg PO DAILY 14 Days #14 cap 10/08/23 Allergies Allergy/AdvReac Type Severity Reaction Status Date / Time No Known Allergies Allergy Verified 10/08/23 18:49 Review of Systems ROS Statement: Those systems with pertinent positive or pertinent negative responses have been documented in the HPI. Review of Systems: CONST: Denies fever EYES: Denies blurry vision ENT: Denies nasal congestion C/V: Endorses palpitations RESP: Denies shortness of breath GI: Denies abdominal pain : Denies dysuria SKIN: Denies rash. MSK: Denies joint pain. NEURO: Denies headache ROS Other: All systems not noted in ROS Statement are negative. Past Medical History Past Medical History: No Reported History Additional Past Medical History / Comment(s): Tachycardia. History of Any Multi-Drug Resistant Organisms: None Reported, MRSA Date of last positivie culture/infection: 2011 MDRO Source:: finger Past Surgical History: No Surgical Hx Reported Past Psychological History: Anxiety Smoking Status: Former smoker Past Alcohol Use History: Rare Past Drug Use History: None Reported, Marijuana General Exam - General Exam Comments Initial Comments: General: Appears anxious HEAD: Normal with no signs of head trauma. EYES: PERRLA, EOMI, conjunctiva normal, no discharge. ENT: Hearing grossly intact, normal oropharynx. RESPIRATORY: Clear breath sounds bilaterally. No wheezes, rales, or rhonchi. C/V: Regular rate and rhythm. S1 and S2 auscultated, no edema, peripheral pulses 2+ and intact throughout ABD: Abd is soft, nontender, nondistended EXT: Normal range of motion, no obvious deformity SKIN: No rashes or lesions observed on exposed skin. NEURO: Alert and oriented x 4. Limitations: no limitations Course Vital Signs 10/08/23 10/08/23 10/08/23 18:46 21:00 21:15 Temperature 97.7 F Pulse Rate 102 H 110 H 108 H Respiratory 16 18 19 Rate Blood Pressure 143/94 151/92 140/93 O2 Sat by Pulse 99 98 97 Oximetry 10/08/23 21:30 Temperature Pulse Rate 98 Respiratory 18 Rate Blood Pressure 105/79 O2 Sat by Pulse 98 Oximetry Medical Decision Making - Medical Decision Making Was pt. sent in by a medical professional or institution (, PA, [employer], urgent care, hospital, or [facility]...) When possible be specific @ -Sent by urgent care for further evaluation. Did you speak to anyone other than the patient for history (EMS, parent, family, police, friend...)? What history was obtained from this source @ -No Did you review nursing and triage notes (agree or disagree)? Why? @ -I reviewed and agree with nursing and triage notes Were old charts reviewed (outside hosp., previous admission, EMS record, old EKG, old radiological studies, urgent care reports/EKG's, [facility] records)? Report findings @ -Old charts including EKGs were reviewed from prior visits. Differential Diagnosis (chest pain, altered mental status, abdominal pain women, abdominal pain men, vaginal bleeding, weakness, fever, dyspnea, syncope, headache, dizziness, GI bleed, back pain, seizure, CVA, palpatations, mental health, musculoskeletal)? @ -Differential Palpitations Ventricular arrhythmias, atrial arrhythmias, myocardial infarction, anemia, thyrotoxicosis, electrolyte imbalance, hypokalemia, pulmonary embolism, pulmonary disease, drugs, alcohol, anxiety, stress.... This is not meant to be an all-inclusive list. EKG interpreted by me (3pts min.). @ -As above X-rays interpreted by me (1pt min.). @ -Chest x-ray reveals no obvious acute cardiopulmonary process. CT interpreted by me (1pt min.). @ -None done U/S interpreted by me (1pt. min.). @ -None done What testing was considered but not performed or refused? (CT, X-rays, U/S, labs)? Why? @ -None What meds were considered but not given or refused? Why? @ -None Did you discuss the management of the patient with other professionals (professionals i.e. , PA, [employer], lab, RT, psych nurse, social science analyst, draw string knotter, t eacher, chief analytics officer, case management rn)? Give summary @ -No Was smoking cessation discussed for >3mins.? @ -No Was critical care preformed (if so, how long)? @ -No Were there social determinants of health that impacted care today? How? (Homelessness, low income, unemployed, alcoholism, drug addiction, transportation, low edu. Level, literacy, decrease access to med. care, half-way, rehab)? @ -No Was there de-escalation of care discussed even if they declined (Discuss DNR or withdrawal of care, Hospice)? DNR status @ -No What co-morbidities impacted this encounter? (DM, HTN, Smoking, COPD, CAD, Cancer, CVA, ARF, Chemo, Hep., AIDS, mental health diagnosis, sleep apnea, morbid obesity)? @ -None Was patient admitted / discharged? Hospital course, mention meds given and route, prescriptions, significant lab abnormalities, going to OR and other pertinent info. @ -Workup started in triage. I evaluated the patient after he was placed in room. Currently is feeling improved. Workup has already been completed and shows a chest x-ray that is unremarkable, mildly elevated LFTs which are nonsp ecific. Troponin is undetectable. EKG shows no signs of acute ischemia, with J-point elevation. We will obtain repeat EKG. This shows no dynamic changes. Patient given Benadryl for his anxiety, as I strongly believe this is playing a role today. He declines any benzos. He was in agreement this plan. Vital signs within acceptable limits. On reevaluation, patient is feeling improved and would like to go. Heart score is low. I believe this is reasonable. I discussed results with the patient. I also recommended he go back on his blood pressure medication which she was in agreement with. He is out of his prescription and therefore that will be refilled for the next 14 days. He does have follow-up with his PCP next week. Patient was in agreement this plan. I instructed the patient to follow up with their PCP in the next 1-3 days. I explained that the patient should return to the emergency department if they experience any worsening symptoms. Strict return precautions were discussed with the patient. The patient expressed understanding of these instructions. I answered all questions that the patient had. The patient was discharged home in good condition with their prescriptions and follow up information. Undiagnosed new problem with uncertain prognosis? @ -No Drug Therapy requiring intensive monitoring for toxicity (Heparin, Nitro, Insulin, Cardizem)? @ -No Were any procedures done? @ -No Diagnosis/symptom? @ -Heart palpitations, anxiety, medication refill Acute, or Chronic, or Acute on Chronic? @ -Acute Uncomplicated (without systemic symptoms) or Complicated (systemic symptoms)? @ -Uncomplicated Side effects of treatment? @ -No Exacerbation, Progression, or Severe Exacerbation? @ -No Poses a threat to life or bodily function? How? (Chest pain, [place], [place], pneumonia, PE, COPD, DKA, ARF, appy, cholecystitis, CVA, Diverticulitis, Homicidal, Suicidal, threat to staff... and all critical care pts) @ -No - Lab Data Result diagrams: 10/08/23 19:27 10/08/23 19:27 Lab Results 10/08/23 10/08/23 10/08/23 Range/Units 19:27 19:27 19:27 WBC 8.5 (3.8-10.6) k/uL RBC 5.08 (4.30-5.90) m/uL Hgb 16.3 (13.0-17.5) gm/dL Hct 47.7 (39.0-53.0) % MCV 93.9 (80.0-100.0) fL MCH 32.1 (25.0-35.0) pg MCHC 34.2 (31.0-37.0) g/dL RDW 11.9 (11.5-15.5) % Plt Count 295 (150-450) k/uL MPV 6.9 Neutrophils % 75 % Lymphocytes % 16 % Monocytes % 5 % Eosinophils % 1 % Basophils % 1 % Neutrophils # 6.4 (1.3-7.7) k/uL Lymphocytes # 1.4 (1.0-4.8) k/uL Monocytes # 0.4 (0-1.0) k/uL Eosinophils # 0.1 (0-0.7) k/uL Basophils # 0.1 (0-0.2) k/uL PT 10.5 (10.0-12.5) sec INR 1.0 (<1.2) APTT 24.6 (22.0-30.0) sec Sodium 141 (137-145) mmol/L Potassium 4.1 (3.5-5.1) mmol/L Chloride 105 (98-107) mmol/L Carbon Dioxide 23 (22-30) mmol/L Anion Gap 13 mmol/L BUN 16 (9-20) mg/dL Creatinine 0.73 (0.66-1.25) mg/dL Est GFR (CKD-EPI)AfAm >90 (>60 ml/min/1.73 sqM) Est GFR (CKD-EPI)NonAf >90 (>60 ml/min/1.73 sqM) Glucose 84 (74-99) mg/dL Calcium 10.2 (8.4-10.2) mg/dL Magnesium 2.1 (1.6-2.3) mg/dL Total Bilirubin 1.1 (0.2-1.3) mg/dL AST 210 H (17-59) U/L ALT 103 H (4-49) U/L Alkaline Phosphatase 81 (38-126) U/L Troponin I (0.000-0.034) ng/mL Total Protein 8.6 H (6.3-8.2) g/dL Albumin 5.5 H (3.5-5.0) g/dL 10/08/23 Range/Units 19:27 WBC (3.8-10.6) k/uL RBC (4.30-5.90) m/uL Hgb (13.0-17.5) gm/dL Hct (39.0-53.0) % MCV (80.0-100.0) fL MCH (25.0-35.0) pg MCHC (31.0-37.0) g/dL RDW (11.5-15.5) % Plt Count (150-450) k/uL MPV Neutrophils % % Lymphocytes % % Monocytes % % Eosinophils % % Basophils % % Neutrophils # (1.3-7.7) k/uL Lymphocytes # (1.0-4.8) k/uL Monocytes # (0-1.0) k/uL Eosinophils # (0-0.7) k/uL Basophils # (0-0.2) k/uL PT (10.0-12.5) sec INR (<1.2) APTT (22.0-30.0) sec Sodium (137-145) mmol/L Potassium (3.5-5.1) mmol/L Chloride (98-107) mmol/L Carbon Dioxide (22-30) mmol/L Anion Gap mmol/L BUN (9-20) mg/dL Creatinine (0.66-1.25) mg/dL Est GFR (CKD-EPI)AfAm (>60 ml/min/1.73 sqM) Est GFR (CKD-EPI)NonAf (>60 ml/min/1.73 sqM) Glucose (74-99) mg/dL Calcium (8.4-10.2) mg/dL Magnesium (1.6-2.3) mg/dL Total Bilirubin (0.2-1.3) mg/dL AST (17-59) U/L ALT (4-49) U/L Alkaline Phosphatase (38-126) U/L Troponin I <0.012 (0.000-0.034) ng/mL Total Protein (6.3-8.2) g/dL Albumin (3.5-5.0) g/dL - EKG Data -: EKG Interpreted by Me EKG Comments: 12-lead Electrocardiogram Interpretation Note EKG was reviewed and interpreted by myself. 12-lead ECG performed at 1919 is interpreted by me as revealing normal sinus rhythm at a rate of 93 beats per minute. [place] is normal. [place] interval is 172 ms, QRS duration is 92 ms.. Patient appears to have J-point elevation. There were no ST or T wave abnormalities to suggest myocardial ischemia or injury. R wave progression across the precordium was satisfactory. By my interpretation this EKG is non- diagnostic for acute ischemia. 12-lead Electrocardiogram Interpretation Note EKG was reviewed and interpreted by myself. 12-lead ECG performed at 2056 is interpreted by me as revealing sinus tachycardia at a rate of 104 beats per minute. [place] is normal. [place] interval is 177 ms, QRS durations 100 ms, QTc is 396 ms.. There were no ST or T wave abnormalities to suggest myocardial ischemia or injury. Point elevation redemonstrated. R wave progression across the precordium was satisfactory. By my interpretation this EKG is non- diagnostic for acute ischemia. Disposition Clinical Impression: Anxiety, Heart palpitations, Medication refill Disposition: HOME SELF-CARE Condition: Good Instructions (If sedation given, give patient instructions): Heart Palpitations (ED) Prescriptions: Diltiazem Cd [Cardizem CD] 180 mg PO DAILY 14 Days #14 cap Is patient prescribed a controlled substance at d/c from ED?: No Referrals: Jabari Burnett MD [Primary Care Provider] - 1-2 days Time of Disposition: 21:57
[2023-10-08 22:07] VITALS: BP 105/79; PULSE 98; RESP 18
[2023-10-08 22:48] VITALS: TEMP 97.9
== END 2023-10-08 22:10 | disposition home or self-care (01) ==
LOC: EC 18:44
DX: F41.9 Anxiety disorder, unspecified (principal); R00.2 Palpitations; R00.0 Tachycardia, unspecified; Z76.0 Encounter for issue of repeat prescription; Z87.891 Personal history of nicotine dependence
CPT/HCPCS: 36415; 71046; 80053; 83735; 84484; 85025; 85610; 85730; 93005; 99285

== ENCOUNTER 2024-05-09 14:42 | Emergency (ER) | payer OTHER ==
--- NOTE | 2024-05-09 15:17 | ED ---
ENT HPI - General Chief complaint: Dental/Oral Stated complaint: Dental pain Time Seen by Provider: 05/09/24 15:01 Source: patient, RN notes reviewed Mode of arrival: ambulatory Limitations: no limitations - History of Present Illness Initial comments: This is a 23-year-old male with no significant medical history presenting to the emergency room with complaint of right maxillary dental pain that has been ongoing over the past 2 days, states over the past week has been worsening. Patient states that he has been having a difficult time chewing on the right side of his mouth due to pain. He denies fevers, chills, nausea, vomiting, difficulty breathing or swallowing. Denies recent antibiotic use. States he is currently enrolled in healthcare and will make a appointment with a dentist to soon as his healthcare is in work. - Related Data Previous Rx's Medication Instructions Recorded Melatonin 10 mg PO HS PRN tab 11/07/22 Diltiazem Cd [Cardizem CD] 180 mg PO DAILY 14 Days #14 cap 10/08/23 Amoxicillin 875 mg PO Q12HR #20 tablet 05/09/24 Allergies Allergy/AdvReac Type Severity Reaction Status Date / Time dog dander Allergy Unknown Verified 05/09/24 14:55 Review of Systems ROS Statement: Those systems with pertinent positive or pertinent negative responses have been documented in the HPI. ROS Other: All systems not noted in ROS Statement are negative. Past Medical History Past Medical History: Pneumonia Additional Past Medical History / Comment(s): Tachycardia. History of Any Multi-Drug Resistant Organisms: None Reported, MRSA Date of last positivie culture/infection: 2011 MDRO Source:: finger Past Surgical History: No Surgical Hx Reported Past Psychological History: Anxiety Smoking Status: Current every day smoker Past Alcohol Use History: Rare Past Drug Use History: Marijuana General Exam Limitations: no limitations General appearance: alert, in no apparent distress Eye exam: Present: normal appearance, PERRL, EOMI. Absent: scleral icterus, conjunctival injection, periorbital swelling Expanded Teeth exam: Present: dental caries, dental tenderness # Neck exam: Present: normal inspection. Absent: tenderness, meningismus, lymphadenopathy Respiratory exam: Present: normal lung sounds bilaterally. Absent: respiratory distress, wheezes, rales, rhonchi, stridor Cardiovascular Exam: Present: regular rate, normal rhythm, normal heart sounds. Absent: systolic murmur, diastolic murmur, rubs, gallop, clicks GI/Abdominal exam: Present: soft, normal bowel sounds. Absent: distended, tenderness, guarding, rebound, rigid Extremities exam: Present: normal inspection, full ROM, normal capillary refill. Absent: tenderness, pedal edema, joint swelling, calf tenderness Skin exam: Present: warm, dry, intact, normal color. Absent: rash Course Vital Signs 05/09/24 05/09/24 05/09/24 14:55 15:03 15:56 Temperature 98.3 F 98.2 F 98.9 F Pulse Rate 114 H 113 H 99 Respiratory 18 17 18 Rate Blood Pressure 132/94 141/93 136/86 O2 Sat by Pulse 99 99 99 Oximetry Medical Decision Making - Medical Decision Making Was pt. sent in by a medical professional or institution (DONNA Glynn, COMPUTER SYSTEMS ENGINEER, urgent care, hospital, or intermediate...) When possible be specific @ -No Did you speak to anyone other than the patient for history (EMS, parent, family, police, friend...)? What history was obtained from this source @ -No Did you review nursing and triage notes (agree or disagree)? Why? @ -I reviewed and agree with nursing and triage notes Were old charts reviewed (outside hosp., previous admission, EMS record, old EKG, old radiological studies, urgent care reports/EKG's, intermediate records)? Report findings @ -No old charts were reviewed Differential Diagnosis (chest pain, altered mental status, abdominal pain women, abdominal pain men, vaginal bleeding, weakness, fever, dyspnea, syncope, headache, dizziness, GI bleed, back pain, seizure, CVA, palpatations, mental health, musculoskeletal)? @ -Dental abscess, pulpitis, gingivitis, dental caries, this list is not all inclusive EKG interpreted by me (3pts min.). @ -none X-rays interpreted by me (1pt min.). @ -None done CT interpreted by me (1pt min.). @ -None done U/S interpreted by me (1pt. min.). @ -None done What testing was considered but not performed or refused? (CT, X-rays, U/S, labs)? Why? @ -None What meds were considered but not given or refused? Why? @ -None Did you discuss the management of the patient with other professionals (professionals i.e. , PA, COMPUTER SYSTEMS ENGINEER, lab, RT, psych nurse, clinical social work aide, cavalry officer, teacher, contact officer, case reviewer)? Give summary @ -No Was smoking cessation discussed for >3mins.? @ -No Was critical care preformed (if so, how long)? @ -No Were there social determinants of health that impacted care today? How? (Ho melessness, low income, unemployed, alcoholism, drug addiction, transportation, low edu. Level, literacy, decrease access to med. care, residential, rehab)? @ -No Was there de-escalation of care discussed even if they declined (Discuss DNR or withdrawal of care, Hospice)? DNR status @ -No What co-morbidities impacted this encounter? (DM, HTN, Smoking, COPD, CAD, Cancer, CVA, ARF, Chemo, Hep., AIDS, mental health diagnosis, sleep apnea, morbid obesity)? @ -None Was patient admitted / discharged? Hospital course, mention meds given and route, prescriptions, significant lab abnormalities, going to OR and other pertinent info. @ -Discharge. 23-year-old male with dental pain. Evaluation does not have dental caries and dental tenderness to the superior left maxillary. There is no signs of abscess. Patient's vitals are stable. Patient is provided with prescription for amoxicillin and instructed to follow-up with dentist for further evaluation. Discussed with Dr. Paige Undiagnosed new problem with uncertain prognosis? @ -No Drug Therapy requiring intensive monitoring for toxicity (Heparin, Nitro, Insulin, Cardizem)? @ -No Were any procedures done? @ -No Diagnosis/symptom? @ -dental pain Acute, or Chronic, or Acute on Chronic? @ -acute Uncomplicated (without systemic symptoms) or Complicated (systemic symptoms)? @ -uncomplicated Side effects of treatment? @ -No Exacerbation, Progression, or Severe Exacerbation? @ -No Poses a threat to life or bodily function? How? (Chest pain, [place], [place], pneumonia, PE, COPD, DKA, ARF, appy, cholecystitis, CVA, Diverticulitis, Homicidal, Suicidal, threat to staff... and all critical care pts) @ -No Disposition Clinical Impression: Pain, dental, Pulpitis Disposition: HOME SELF-CARE Condition: Good Instructions (If sedation given, give patient instructions): Toothache (ED) Additional Instructions: Please return to the Emergency Department if symptoms worsen or any other concerns. Prescriptions: Amoxicillin 875 mg PO Q12HR #20 tablet Is patient prescribed a controlled substance at d/c from ED?: No Referrals: Jabari Burnett MD [Primary Care Provider] - 1-2 days Time of Disposition: 15:39
[2024-05-09 16:00] VITALS: BP 136/86; PULSE 99; RESP 18; TEMP 98.9
== END 2024-05-09 16:01 | disposition home or self-care (01) ==
LOC: EC 14:42
DX: K04.01 Reversible pulpitis (principal); F17.200 Nicotine dependence, unspecified, uncomplicated; Z91.048 Other nonmedicinal substance allergy status
CPT/HCPCS: 99282